=== PATIENT | female | born 1995 | race Caucasian/White ===

== ENCOUNTER 2017-08-29 20:19 | Emergency (ER) | payer OTHER ==
[~2017-08-29] VITALS: Ht 160 cm; Wt 62.3 kg
[2017-08-29 20:23] VITALS: TEMP 36.7; Ht 160 cm; Wt 62.3 kg
[2017-08-29] MEDS ORDERED: PROPARACAINE HCL 0.5% OP SOLN 15 ML BTL ONE (20:24)
[2017-08-29] MEDS ORDERED: PROPARACAINE HCL 0.5% OP SOLN 15 ML BTL OP STA (20:32)
[2017-08-29] MEDS ORDERED: HYDR-5688 PO (20:57)
[2017-08-29] MEDS ORDERED: NORCO 5/325MG HOME PACK PO ONE (21:00)
[2017-08-29] MEDS ORDERED: CIPROFLOXACIN HCL 3.5 GM TUBE OP ONE (21:00)
[2017-08-29 21:17] VITALS: BP 120/68; PULSE 68; O2SAT 99
--- NOTE | 2017-08-30 00:39 | EMERGENCY ROOM VISIT NOTE ---
ED Visit Note First contact with patient: 20:32 Chief Complaint: Eye scratch my right eye. History of Present Illness: Ms. Pleitez is a 22-year-old white female who ambulates into the ED accompanied by 2 female friends complaining of right eye pain. Patient was referred to the ED for evaluation from a local urgent care center. Patient reports she is just returned from spring in [place]. She reports she has been having right eye pain for the last 2-3 days. Historically she reports she has been overusing her daily wear contacts that she is not supposed to be sleeping in. After sleeping with the contacts in and 2 nights the next morning she awoke and started having pain. Since that time her pain has been has been constant and worsening in intensity. Currently she describes her pain as a burning sensation. She rates her discomfort 6/10. The pain is nonradiating. The pain worsens with exposure to bright lights. She has not identified any alleviating factors related to the pain. She has not taken any medication for pain prior to arrival at the hospital. Associated with her pain she reports she has noted mild blurry vision , light sensitivity and tearing. She denies headache, dizziness, lightheadedness, upper respiratory tract symptoms, recent repetitive or direct trauma to the eye, previous significant injuries or surgeries to the eye, decreasing vision, flashing lights, halos, floaters. Review of Systems: As noted above in history of present illness. Past Medical History: Patient denies. Current Medications: Patient denies. Allergies to Medications: Penicillin. Social History: Patient is a university student; she feels safe in her home environment; she admits to tobacco and alcohol use. Physical Examination: Vital Signs: Date Time Temp Pulse Resp B/P (MAP) Pulse Ox O2 Delivery O2 Flow Rate FiO2 08/29/17 21:17 68 18 120/68 99 08/29/17 20:23 36.7 83 18 120/67 98 Room Air GENERAL: 22-year-old male in mild to moderate distress due to pain, nontoxic- appearing, afebrile and hemodynamically stable. NEUROLOGICAL: Awake, alert and oriented to person, place and time. Answering questions appropriately and following commands. Normal gait. Good hand eye coordination. SKIN: Warm, dry and pink. No soft tissue eruptions or trauma noted. HEENT: Atraumatic and normocephalic. PERRLA. EOMI. Sclera is moderately injected. Cornea is pink with drainage of clear tears. No tenderness throughout the soft tissues of the orbit or eye. No foreign bodies were noted under the eyelids are embedded in the cornea. The anterior chamber is clear. On slit-lamp examination patient is noted to have superficial punctate keratitis of the right eye and over the inferior lateral border of the cornea there is hypertrophy of the skin consistent with a possible early ulcer. Visual acuity: Right 20/50 without correction, left 20/30 without correction. ED Course: Patient is assessed as noted above. Patient's medication list was reviewed. Patient was offered pain medication and refused. 2 drops of Alcaine was placed in the right eye for examination. Patient was educated about today's findings and instructed on her treatment plan ; she verbalizes understanding and agreement with this plan. Clinical Impression: Right eye superficial punctate keratitis. Possible early corneal ulcer development. Disposition: Patient discharged to home in stable condition accompanied by 2 female friend; prior to departure she was reassessed and subjectively reported that she was pain-free. Plan: Comfort measures were discussed with the patient including a sliding pain medication scale of ibuprofen, acetaminophen and [place]; state database was checked and no red flags were noted and she was given appropriate narcotic precautions. A home pack of Ciloxan ophthalmic ointment was given to the patient and she was educated about how to place her ointment 2 times a day for the next 5 days. Patient was encouraged to follow-up with ophthalmology, Dr. Song, or return to the ED for recheck in 36-48 hours. Patient was encouraged to avoid contact use until follow-up. Patient was encouraged to return to the ED sooner for worsening/uncontrolled pain, worsening visual changes, vomiting, fevers, headaches or any new/ concerning symptoms.
[2017-08-30] MEDS ORDERED: MULT-506 PO (15:17)
[2017-08-30] MEDS ORDERED: HYDR-5688 PO (15:17)
[2017-08-30] MEDS ORDERED: BCPILLS PO (15:17)
[2017-08-30] MEDS ORDERED: OFLO0.3S4 OPL (15:58)
== END 2017-08-29 21:19 | disposition home or self-care (01) ==
LOC: C.EDB 20:21 → C.EDD 21:19
DX: H16.141 Punctate keratitis, right eye (principal); F17.200 Nicotine dependence, unspecified, uncomplicated

== ENCOUNTER 2017-08-30 15:05 | Emergency (ER) | payer OTHER ==
[~2017-08-30] VITALS: Ht 160 cm; Wt 61.3 kg
[~2017-08-30 15:05] MED LIST: HYDR-5688 PO; OFLOXACIN 0.3% OP SOLN 5 ML BTL OPR SCH
[2017-08-30 15:08] VITALS: TEMP 36.9; Ht 160 cm; Wt 61.3 kg
[2017-08-30] MEDS ORDERED: BCPILLS PO (15:17)
[2017-08-30] MEDS ORDERED: MULT-506 PO (15:17)
[2017-08-30] MEDS ORDERED: HYDR-5688 PO (15:17)
[2017-08-30] MEDS ORDERED: PROPARACAINE HCL 0.5% OP SOLN 15 ML BTL OP STA (15:20)
[2017-08-30] MEDS ORDERED: OFLO0.3S4 OPL (15:58)
[2017-08-30 16:11] VITALS: BP 120/79; PULSE 89; O2SAT 98
--- NOTE | 2017-08-30 21:15 | EMERGENCY ROOM VISIT NOTE ---
ED Visit Note First contact with patient: 15:13 Chief Complaint: Right eye pain and foggy vision. History of Present Illness: Ms. Pleitez is a 22-year-old white female who ambulates into the ED accompanied by female friend is complaining of right eye pain and foggy vision in her right eye. Historically I saw this patient yesterday emergency department and was diagnosed with superficial punctate keratitis and a developing ulcer on the right eye for overuse of her contacts. Patient reports since being discharged from the hospital she has noted that her pain has been stable but this morning when she woke up from sleep she noted that her vision in her right eye was foggy and she was still having pain in her right eye. Additionally she does report she has not used her Ciloxan ophthalmic ointment in her eye this morning. Currently she describes her pain as a stinging sensation. She rates her discomfort 7/10. Her pain is nonradiating. She pain is worsened with exposure to bright light. She has not identified any alleviating factors related to the pain. She has used her prescribed [place] with mild relief of her discomfort. Associated with her pain as previously noted she feels her vision is slightly foggy today but she has not noted any decrease in her overall vision and she has noted worsening swelling of the upper eyelid. She denies fevers, chills, sweats, skin eruptions, skin color changes, headache , dizziness, lightheadedness, flashing lights, drawing curtains, halos in her visual coyle decreased appetite, nausea, vomiting. Review of Systems: As noted above in history of present illness. 8 body systems were reviewed and found to be negative as noted above. Past Medical History: Pneumonia, unspecified urinary problems, status post breast reduction Current Medications: control, multiple vitamins. Allergies to Medications: Penicillin. 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 Physical Examination: Vital Signs: Date Time Temp Pulse Resp B/P (MAP) Pulse Ox O2 Delivery O2 Flow Rate FiO2 08/30/17 16:11 89 18 120/79 98 Room Air 08/30/17 15:08 36.9 104 20 140/88 98 Room Air GENERAL: 22-year-old female in mild distress due to pain, nontoxic-appearing, afebrile and hemodynamically stable. NEUROLOGICAL: Awake, alert and oriented to person, place and time. Answering questions appropriately and following commands. Normal gait. Good hand eye coordination. SKIN: Warm, dry and pink. No soft tissue eruptions or trauma noted. HEENT: Atraumatic and normocephalic. Mild edematous edema over the upper eyelid; the skin does not appear cellulitic and is not erythematous or warm to the touch. Patient is light sensitive. PERRLA. EOMI. no foreign bodies were noted under the eyelids are embedded in the cornea. The anterior chamber is clear. On slit-lamp examination with staining patient had slight improvement of her superficial punctate keratitis and over the inferior border of her ulcer formation appeared slightly improved and the upper border appears slightly worse. There is no additional trauma noted. She refused to do visual assessment due to pain and swelling. ED Course: Patient is assessed as noted above. Patient's medication list was reviewed. Alcaine was used to anesthetize the eyes for examination. Patient's case was consulted with Dr. Song, boating safety officer, he recommended a switch in her antibiotic drops to Ofloxacin; 2 drops every 2 hours while awake and 2 drops every 4 hours while asleep. Also he requested that the patient call his office tomorrow morning for follow-up. Patient's case was reviewed with Dr. Chu; we agreed on diagnostic approach, treatment, disposition and plan. Patient was educated about today's findings and instructed on her treatment plan ; she verbalized understanding and agreement with this plan. Clinical Impression: Superficial punctate keratitis and corneal ulcer in to the right eye. Disposition: Patient discharged home in stable condition accompanied by 2 female friend; prior to departure she was reassessed and subjectively reported she was pain-free. Plan: Patient was encouraged to continue her current pain medications. Patient was encouraged to use ofloxacin I drops and she was instructed on their use. Patient was encouraged to use cool compresses or ice bags on her right eye for swelling. Patient was encouraged to contact Dr. Song's office early tomorrow morning for office follow-up and care. Patient is encouraged to return the ED for worsening/uncontrolled pain, uncontrolled swelling, vomiting, severe headaches, visual changes or any new/ concerning symptoms.
== END 2017-08-30 16:12 | disposition home or self-care (01) ==
LOC: C.EDB 15:05 → C.EDD 16:12
DX: H16.141 Punctate keratitis, right eye (principal); H16.001 Unspecified corneal ulcer, right eye; F17.200 Nicotine dependence, unspecified, uncomplicated; Z72.89 Other problems related to lifestyle; Z79.3 Long term (current) use of hormonal contraceptives; Z88.0 Allergy status to penicillin

== ENCOUNTER → 2017-08-31 | Outpatient (CLI) | payer OTHER ==
[~2017-08-31] MED LIST changes: +BCPILLS PO; +MULT-506 PO; +OFLO0.3S4 OPL; -OFLOXACIN 0.3% OP SOLN 5 ML BTL OPR SCH
== END | disposition home or self-care (01) ==
LOC: C.LABSPEC 11:22
PROVIDERS: ATTEND Ophthalmology
DX: H16.001 Unspecified corneal ulcer, right eye (principal)